=== PATIENT | male | born 1975 | race Caucasian/White ===

== ENCOUNTER 2016-07-13 18:33 | Inpatient (IN) | payer MEDICAID ==
[~2016-07-13] VITALS: Ht 165.1 cm; Wt 69.2 kg
[2016-07-13] MEDS ORDERED: RENAL PO (18:41)
[2016-07-13] MEDS ORDERED: HTN PO (18:41)
[2016-07-13 19:37] LABS: CALCIUM, TOTAL 7.5 mg/dL (8.8-10.5); CREATININE 14.74 mg/dL (0.60-1.30)
[2016-07-13 19:45] LABS: BASOPHILS # (AUTO) 0.01 K/uL (0.00-0.20); BASOPHILS % (AUTO) 0.1 % (0.0-2.0); EOSINOPHILS # (AUTO) 0.13 K/uL (0.00-0.70); EOSINOPHILS % (AUTO) 1.22 % (1.0-6.0); HEMATOCRIT 29.4 % (41-53); HEMOGLOBIN 9.8 g/dL (13.5-17.5); LYMPHOCYTES # (AUTO) 0.7 K/uL (1.0-4.8); LYMPHOCYTES % (AUTO) 6.7 % (22.0-44.0); MEAN CORPUSCULAR HEMOGLOBIN 33.2 pg (26.0-34.0); MEAN CORPUSCULAR HGB CONC 33.2 G/dL (31.0-37.0); MEAN CORPUSCULAR VOLUME 100 fL (80-100); MONOCYTES # (AUTO) 0.9 K/uL (0.1-1.0); MONOCYTES % (AUTO) 8.2 % (2.0-9.0); NEUTROPHILS # (AUTO) 9.3 K/uL (1.8-7.7); NEUTROPHILS % (AUTO) 83.8 % (40.0-70.0); PLATELET COUNT (AUTO) 145 K/uL (150-450); RED BLOOD CELL COUNT(AUTO) 2.94 MIL/uL (4.50-5.90); RED CELL DISTRIBUTION WIDTH 14.3 % (11.5-14.5); WHITE BLOOD COUNT (AUTO) 11.1 K/uL (4.5-11.0)
[2016-07-13] MEDS ORDERED: ALBUTEROL SULFATE 5 MG/ML 20 ML NEB SOLN [BULK] NEB ONE (21:45)
[2016-07-13] MEDS ORDERED: IPRATROPIUM BROMIDE 0.5 MG/2.5 ML NEB SOLUTION NEB ONE (21:45)
[2016-07-13] MEDS ORDERED: INSULIN REGULAR, HUMAN 100 UNITS/ML IVP ONE (21:45)
[2016-07-13] MEDS ORDERED: CefTRIAXone 1 GM/DEXTROSE 50 ML IV ONE (21:45)
[2016-07-13] MEDS ORDERED: DEXTROSE 50%-WATER 25 GM/50 ML SYRINGE IVP ONE (21:45)
[2016-07-13] MEDS ORDERED: SODIUM POLYSTYRENE SULFONATE 15 GM/60 ML SUSPENSION BOTTLE PO ONE ×2 (21:45→23:15)
[2016-07-13 21:51] LABS: GLUCOSE,POINT OF CARE 122 MG/DL (70-110)
[2016-07-13] MEDS ORDERED: NITROGLYCERIN 2% (1 GM=INCH) PACKET TP ONE (22:15)
[2016-07-13] MEDS ORDERED: ASPIRIN 325 MG TABLET PO ONE (22:15)
[2016-07-13] MEDS ORDERED: FUROSEMIDE 40 MG/4 ML VIAL IVP ONE (22:15)
[2016-07-13 22:32] LABS: INFLUENZA TYPE B NEGATIVE FOR TYPE B (NEGATIVE)
[2016-07-13 23:05] LABS: ALBUMIN 2.8 g/dL (3.4-5.0); BILIRUBIN,DIRECT 0.1 mg/dL (0.00-0.20); BILIRUBIN,TOTAL 0.3 mg/dL (0.1-1.0); TOTAL PROTEIN, SERUM 6.5 g/dL (6.4-8.2)
[2016-07-13 23:08] LABS: LACTIC ACID 0.6 mmol/L (0.4-2.0)
[2016-07-13] MEDS ORDERED: ACETAMINOPHEN 325 MG TABLET PO PRN (23:30)
[2016-07-13] MEDS ORDERED: ONDANSETRON HCL 4 MG/2 ML VIAL IVP PRN (23:30)
[2016-07-13] MEDS ORDERED: 0.9% SODIUM CHLORIDE 10 ML SYRINGE IVP PRN (23:30)
[2016-07-13] MEDS ORDERED: 0.9% SODIUM CHLORIDE 5 ML NEB SOLUTION NEB ONE (23:51)
[2016-07-14 01:17] LABS: APPEARANCE,URINE CLEAR (CLEAR); GLUCOSE, URINE (UA) NEGATIVE (NEGATIVE); KETONES,URINE NEGATIVE (NEGATIVE); LEUKOCYTE ESTERASE ,URINE NEGATIVE (NEGATIVE); OCCULT BLOOD,URINE LARGE (NEGATIVE); PH,URINE 6.5 (5.0-8.0); PROTEIN,URINE SEE CONFIRM (NEGATIVE)
[2016-07-14 01:18] LABS: ADD UA MICROSCOPIC YES
[2016-07-14 01:27] LABS: RBC,URINE 51-100 /HPF (0-2); SULFOSALICYLIC ACID,URINE 2+ (Negative)
[2016-07-14] MEDS ORDERED: 0.9% SODIUM CHLORIDE 10 ML SYRINGE IVP PRN (03:30)
[2016-07-14] MEDS ORDERED: ONDANSETRON HCL 4 MG/2 ML VIAL IVP PRN (03:30)
[2016-07-14] MEDS ORDERED: MAGNESIUM HYDROXIDE SUSPENSION 30 ML UDCUP PO PRN (03:30)
[2016-07-14] MEDS ORDERED: ACETAMINOPHEN 325 MG TABLET PO PRN (03:30)
[2016-07-14] MEDS ORDERED: HydrALAZINE HCL 20 MG/ML VIAL IVP PRN (03:30)
[2016-07-14] MEDS ORDERED: OxyCODONE HCL/ACETAMINOPHEN 5-325 MG TABLET PO PRN ×2 (03:30)
[2016-07-14 05:36] LABS: CALCIUM, TOTAL 7.1 mg/dL (8.8-10.5); CREATININE 15.18 mg/dL (0.60-1.30); POTASSIUM 5.5 mmol/L (3.5-5.1)
[2016-07-14] MEDS ORDERED: SODIUM CHLORIDE 0.9% 2,000 ML IV ONE (09:15)
[2016-07-14 09:36] VITALS: BP 158/88
[2016-07-14 11:59] VITALS: BP 136/88
[2016-07-14 12:24] LABS: BASOPHILS % (AUTO) 0.2 % (0.0-2.0); EOSINOPHILS % (AUTO) 0.3 % (1.0-6.0); HEMATOCRIT 30.6 % (41-53); LYMPHOCYTES # (AUTO) 0.5 K/uL (1.0-4.8); MEAN CORPUSCULAR HEMOGLOBIN 32.4 pg (26.0-34.0); MEAN CORPUSCULAR HGB CONC 32.5 G/dL (31.0-37.0); MEAN CORPUSCULAR VOLUME 100 fL (80-100); MONOCYTES # (AUTO) 0.7 K/uL (0.1-1.0); NEUTROPHILS # (AUTO) 10.6 K/uL (1.8-7.7); PLATELET COUNT (AUTO) 189 K/uL (150-450); RED BLOOD CELL COUNT(AUTO) 3.07 MIL/uL (4.50-5.90); RED CELL DISTRIBUTION WIDTH 13.9 % (11.5-14.5); WHITE BLOOD COUNT (AUTO) 11.8 K/uL (4.5-11.0)
[2016-07-14 12:27] LABS: NEUTROPHILS % (AUTO) 89.5 % (40.0-70.0)
[2016-07-14 12:36] LABS: ALBUMIN 2.9 g/dL (3.4-5.0); BILIRUBIN,TOTAL 0.3 mg/dL (0.1-1.0); CREATININE 6.58 mg/dL (0.60-1.30); POTASSIUM 3.4 mmol/L (3.5-5.1); TOTAL PROTEIN, SERUM 7.1 g/dL (6.4-8.2)
[2016-07-14] MEDS: DOCUSATE SODIUM 100 MG CAPSULE PO SCH ×3 (13:12→21:26)
[2016-07-14] MEDS: PANTOPRAZOLE SODIUM 40 MG/VIAL IVP SCH (13:12)
[2016-07-14] MEDS ORDERED: LISI2.5T2 PO (15:05)
[2016-07-14 15:30] VITALS: BP 159/80
[2016-07-14] MEDS ORDERED: DOXERCALCIFEROL 4 MCG/2 ML AMP IVP SCH (15:30)
[2016-07-14] MEDS ORDERED: DOXERCALCIFEROL 4 MCG/2 ML AMP IVP PRN (15:45)
[2016-07-14] MEDS ORDERED: POTASSIUM CHLORIDE 20 MEQ ER TABLET PO ONE (17:15)
[2016-07-14] MEDS: EPOETIN ALFA 10,000 UNITS/ML 2 ML VIAL SQ SCH (17:31)
[2016-07-14] MEDS: VITAMIN B COMP/VIT C/FOLIC ACID CAPSULE PO SCH (17:32)
[2016-07-14] MEDS: SEVELAMER CARBONATE 800 MG TABLET PO SCH (18:20)
[2016-07-14 19:25] VITALS: BP 175/88
[2016-07-14] MEDS: TERAZOSIN HCL 1 MG CAPSULE PO SCH (21:26)
[2016-07-15] VITALS (7 sets, daily range): BP systolic 45–161; BP diastolic 74–145
[2016-07-15 07:12] LABS: BASOPHILS # (AUTO) 0.01 K/uL (0.00-0.20); BASOPHILS % (AUTO) 0.1 % (0.0-2.0); EOSINOPHILS # (AUTO) 0.24 K/uL (0.00-0.70); EOSINOPHILS % (AUTO) 3.77 % (1.0-6.0); HEMATOCRIT 24.4 % (41-53); HEMOGLOBIN 8.1 g/dL (13.5-17.5); LYMPHOCYTES # (AUTO) 1.1 K/uL (1.0-4.8); LYMPHOCYTES % (AUTO) 16.9 % (22.0-44.0); MEAN CORPUSCULAR HGB CONC 33.3 G/dL (31.0-37.0); MEAN CORPUSCULAR VOLUME 99 fL (80-100); MONOCYTES # (AUTO) 0.8 K/uL (0.1-1.0); MONOCYTES % (AUTO) 11.8 % (2.0-9.0); NEUTROPHILS # (AUTO) 4.4 K/uL (1.8-7.7); NEUTROPHILS % (AUTO) 67.4 % (40.0-70.0); PLATELET COUNT (AUTO) 136 K/uL (150-450); RED BLOOD CELL COUNT(AUTO) 2.46 MIL/uL (4.50-5.90); RED CELL DISTRIBUTION WIDTH 14.5 % (11.5-14.5); WHITE BLOOD COUNT (AUTO) 6.5 K/uL (4.5-11.0)
[2016-07-15 08:02] LABS: CALCIUM, TOTAL 6.5 mg/dL (8.8-10.5); CREATININE 11.59 mg/dL (0.60-1.30); POTASSIUM 4.8 mmol/L (3.5-5.1)
[2016-07-15] MEDS: PANTOPRAZOLE SODIUM 40 MG/VIAL IVP SCH (08:14)
[2016-07-15] MEDS: DOCUSATE SODIUM 100 MG CAPSULE PO SCH ×2 (08:14→20:45)
[2016-07-15] MEDS: SEVELAMER CARBONATE 800 MG TABLET PO SCH ×3 (08:14→18:20)
[2016-07-15] MEDS: LISINOPRIL 5 MG TABLET PO SCH (08:15)
[2016-07-15] MEDS: VITAMIN B COMP/VIT C/FOLIC ACID CAPSULE PO SCH (08:15)
[2016-07-15] MEDS ORDERED: -HEMODIALYSIS NOTE- MISC SCH (09:00)
[2016-07-15] MEDS: TERAZOSIN HCL 1 MG CAPSULE PO SCH (20:46)
[2016-07-16 00:02] VITALS: BP 156/79
[2016-07-16 05:20] VITALS: BP 139/77
[2016-07-16 07:30] LABS: BASOPHILS # (AUTO) 0.05 K/uL (0.00-0.20); BASOPHILS % (AUTO) 0.7 % (0.0-2.0); EOSINOPHILS # (AUTO) 0.42 K/uL (0.00-0.70); EOSINOPHILS % (AUTO) 6.75 % (1.0-6.0); HEMATOCRIT 24.3 % (41-53); HEMOGLOBIN 8.1 g/dL (13.5-17.5); LYMPHOCYTES # (AUTO) 0.9 K/uL (1.0-4.8); LYMPHOCYTES % (AUTO) 15.1 % (22.0-44.0); MEAN CORPUSCULAR HGB CONC 33.3 G/dL (31.0-37.0); MEAN CORPUSCULAR VOLUME 99 fL (80-100); MONOCYTES # (AUTO) 0.6 K/uL (0.1-1.0); NEUTROPHILS # (AUTO) 4.2 K/uL (1.8-7.7); NEUTROPHILS % (AUTO) 67.4 % (40.0-70.0); PLATELET COUNT (AUTO) 138 K/uL (150-450); RED BLOOD CELL COUNT(AUTO) 2.46 MIL/uL (4.50-5.90); RED CELL DISTRIBUTION WIDTH 14.7 % (11.5-14.5); WHITE BLOOD COUNT (AUTO) 6.2 K/uL (4.5-11.0)
[2016-07-16 07:45] VITALS: BP 152/88
[2016-07-16 07:57] LABS: CALCIUM, TOTAL 7.1 mg/dL (8.8-10.5); CREATININE 13.16 mg/dL (0.60-1.30); POTASSIUM 5.7 mmol/L (3.5-5.1)
[2016-07-16] MEDS ORDERED: SODIUM CHLORIDE 0.9% 3,000 ML IV ONE (08:31)
[2016-07-16] MEDS: EPOETIN ALFA 10,000 UNITS/ML 2 ML VIAL SQ SCH (09:00)
[2016-07-16] MEDS: PANTOPRAZOLE SODIUM 40 MG/VIAL IVP SCH (11:52)
[2016-07-16] MEDS: DOCUSATE SODIUM 100 MG CAPSULE PO SCH (12:22)
[2016-07-16] MEDS: VITAMIN B COMP/VIT C/FOLIC ACID CAPSULE PO SCH (12:22)
[2016-07-16] MEDS: LISINOPRIL 5 MG TABLET PO SCH (12:22)
[2016-07-16] MEDS ORDERED: FOLI1CAP2 PO (15:44)
[2016-07-16] MEDS ORDERED: LISINOPRIL PO (15:44)
[2016-07-16] MEDS ORDERED: SEVEC800 PO (15:44)
[2016-07-16] MEDS ORDERED: TERAZOSIN PO (15:44)
[2016-07-16 15:58] VITALS: BP 160/94
== END 2016-07-16 16:45 | disposition home or self-care (01) | DRG 194 ==
LOC: EMS 18:38 → 5N 07-14 00:05 → 6N 07-15 23:35
PROVIDERS: ADMIT Internal Medicine; ATTEND Internal Medicine
PROC: 5A1D00Z (ICD-10-PCS; principal; 2016-07-14)
DX: I13.2 Hypertensive heart and chronic kidney disease with heart failure and with stage 5 chronic kidney disease, or end stage renal disease (principal); I50.33 Acute on chronic diastolic (congestive) heart failure; E43 Unspecified severe protein-calorie malnutrition; N18.6 End stage renal disease; D63.1 Anemia in chronic kidney disease; E83.39 Other disorders of phosphorus metabolism; E87.6 Hypokalemia; N40.0 Benign prostatic hyperplasia without lower urinary tract symptoms; N26.9 Renal sclerosis, unspecified; Z99.2 Dependence on renal dialysis; Z98.890 Other specified postprocedural states; Z88.5 Allergy status to narcotic agent; Z68.25 Body mass index [BMI] 25.0-25.9, adult; Z79.899 Other long term (current) drug therapy; Z82.49 Family history of ischemic heart disease and other diseases of the circulatory system
CPT/HCPCS: 76770; 82962; 83605; 86706; 87040; 87081; 87086; 87340; 87804; 90935; 93005; 93306; 94640; 96365; 96375; 99291; C9113; J0696; J0885; J1815; J1940; J7030

== ENCOUNTER 2016-07-23 19:59 | Inpatient (IN) | payer MEDICAID ==
[~2016-07-23] VITALS: Ht 160 cm; Wt 74.4 kg
[~2016-07-23 19:59] MED LIST: FOLI1CAP2 PO; LISINOPRIL PO; RENAL PO; SEVEC800 PO; TERAZOSIN PO
[2016-07-23 20:31] LABS: BASOPHILS % (AUTO) 0.3 % (0.0-2.0); EOSINOPHILS % (AUTO) 1.4 % (1.0-6.0); HEMATOCRIT 28.5 % (41-53); HEMOGLOBIN 9.3 g/dL (13.5-17.5); LYMPHOCYTES # (AUTO) 0.7 K/uL (1.0-4.8); LYMPHOCYTES % (AUTO) 4.7 % (22.0-44.0); MEAN CORPUSCULAR HEMOGLOBIN 32.3 pg (26.0-34.0); MEAN CORPUSCULAR HGB CONC 32.6 G/dL (31.0-37.0); MEAN CORPUSCULAR VOLUME 99 fL (80-100); MONOCYTES # (AUTO) 1.1 K/uL (0.1-1.0); MONOCYTES % (AUTO) 6.8 % (2.0-9.0); NEUTROPHILS # (AUTO) 13.7 K/uL (1.8-7.7); PLATELET COUNT (AUTO) 189 K/uL (150-450); RED BLOOD CELL COUNT(AUTO) 2.88 MIL/uL (4.50-5.90); RED CELL DISTRIBUTION WIDTH 13.4 % (11.5-14.5); WHITE BLOOD COUNT (AUTO) 15.7 K/uL (4.5-11.0)
[2016-07-23 20:35] LABS: NEUTROPHILS % (AUTO) 86.8 % (40.0-70.0)
[2016-07-23 20:43] LABS: INR 1.1 (0.9-1.1); PROTHROMBIN TIME 11.9 SEC (9.4-11.6)
[2016-07-23 20:54] LABS: B-TYPE NATRIURETIC PEPTIDE 792 pg/mL (0-100)
[2016-07-23 21:00] LABS: ALANINE AMINOTRANSFERASE 89 U/L (12-78); ALBUMIN 2.9 g/dL (3.4-5.0); ANION GAP 15 mmol/L (8-16); ASPARTATE AMINOTRANSFERASE 31 U/L (15-37); BILIRUBIN,TOTAL 0.3 mg/dL (0.1-1.0); CALCIUM, TOTAL 6.6 mg/dL (8.8-10.5); CARBON DIOXIDE 22 mmol/L (22-29); CHLORIDE 102 mmol/L (98-107); CREATINE KINASE MB 3.2 ng/mL (0-5); CREATINE KINASE, TOTAL 289 U/L (39-308); CREATININE 12.69 mg/dL (0.60-1.30); GLOMERULAR FILTR. RATE CALC 4 mL/min (>60); SODIUM SERUM 139 mmol/L (136-145); TOTAL PROTEIN, SERUM 6.4 g/dL (6.4-8.2)
[2016-07-23 21:04] LABS: POTASSIUM 6.5 mmol/L (3.5-5.1)
[2016-07-23 21:05] LABS: UREA NITROGEN, BLOOD 123 mg/dL (7-18)
[2016-07-23] MEDS ORDERED: CALCIUM GLUCONATE 100 MG/ML 10 ML IVP ONE (21:15)
[2016-07-23] MEDS ORDERED: INSULIN REGULAR, HUMAN 100 UNITS/ML IVP ONE (21:15)
[2016-07-23] MEDS ORDERED: DEXTROSE 50%-WATER 25 GM/50 ML SYRINGE IVP ONE (21:15)
[2016-07-23] MEDS ORDERED: FUROSEMIDE 20 MG/2 ML VIAL IVP ONE (21:45)
[2016-07-23] MEDS ORDERED: SODIUM POLYSTYRENE SULFONATE 15 GM/60 ML SUSPENSION BOTTLE PO ONE (21:45)
[2016-07-23] MEDS ORDERED: FUROSEMIDE 40 MG/4 ML VIAL IVP ONE (21:45)
[2016-07-23] MEDS ORDERED: ZOLPIDEM TARTRATE 5 MG TABLET PO PRN (23:15)
[2016-07-23] MEDS ORDERED: ONDANSETRON HCL 4 MG/2 ML VIAL IVP PRN (23:15)
[2016-07-23] MEDS ORDERED: MAGNESIUM HYDROXIDE SUSPENSION 30 ML UDCUP PO PRN (23:15)
[2016-07-23] MEDS ORDERED: ALBUTEROL SULFATE 2.5 MG/0.5 ML NEB SOLUTION NEB PRN (23:15)
[2016-07-23] MEDS ORDERED: CloNIDine HCL 0.1 MG TABLET PO PRN (23:15)
[2016-07-23] MEDS ORDERED: ACETAMINOPHEN 325 MG TABLET PO PRN (23:15)
[2016-07-23] MEDS ORDERED: BISACODYL 10 MG RECTAL RECTAL SUPPOSITORY PR PRN (23:15)
[2016-07-23] MEDS ORDERED: IPRATROPIUM BROMIDE 0.5 MG/2.5 ML NEB SOLUTION NEB PRN (23:15)
[2016-07-24] MEDS ORDERED: TERA1 PO (06:24)
[2016-07-24] MEDS ORDERED: LISI-660 PO (06:24)
[2016-07-24 06:30] LABS: BASOPHILS % (AUTO) 0.3 % (0.0-2.0); EOSINOPHILS % (AUTO) 1.8 % (1.0-6.0); HEMATOCRIT 25.4 % (41-53); HEMOGLOBIN 8.3 g/dL (13.5-17.5); LYMPHOCYTES % (AUTO) 9.7 % (22.0-44.0); MEAN CORPUSCULAR HEMOGLOBIN 32.5 pg (26.0-34.0); MEAN CORPUSCULAR HGB CONC 32.5 G/dL (31.0-37.0); MEAN CORPUSCULAR VOLUME 100 fL (80-100); MONOCYTES # (AUTO) 0.9 K/uL (0.1-1.0); MONOCYTES % (AUTO) 8.7 % (2.0-9.0); NEUTROPHILS # (AUTO) 8.2 K/uL (1.8-7.7); NEUTROPHILS % (AUTO) 79.5 % (40.0-70.0); PLATELET COUNT (AUTO) 167 K/uL (150-450); RED BLOOD CELL COUNT(AUTO) 2.54 MIL/uL (4.50-5.90); RED CELL DISTRIBUTION WIDTH 13.8 % (11.5-14.5); WHITE BLOOD COUNT (AUTO) 10.4 K/uL (4.5-11.0)
[2016-07-24 07:24] LABS: ALBUMIN 2.5 g/dL (3.4-5.0); BILIRUBIN,TOTAL 0.3 mg/dL (0.1-1.0); CALCIUM, TOTAL 6.7 mg/dL (8.8-10.5); CHOL/HDL RATIO 2.9 (4.2-7.3); CREATININE 13.42 mg/dL (0.60-1.30); MAGNESIUM 2.2 mg/dL (1.80-2.40); PHOSPHORUS 6.8 mg/dL (2.5-4.9); POTASSIUM 5.2 mmol/L (3.5-5.1); THYROID STIMULATING HORMONE 0.68 uIU/mL (0.36-3.74); TOTAL PROTEIN, SERUM 5.6 g/dL (6.4-8.2)
[2016-07-24 07:58] LABS: CALCIUM, TOTAL 6.9 mg/dL (8.8-10.5); CREATININE 13.66 mg/dL (0.60-1.30); POTASSIUM 5.6 mmol/L (3.5-5.1)
[2016-07-24] MEDS: VITAMIN B COMP/VIT C/FOLIC ACID CAPSULE PO SCH (09:17)
[2016-07-24] MEDS: PANTOPRAZOLE SODIUM 40 MG DR TABLET PO SCH (09:17)
[2016-07-24] MEDS: SEVELAMER CARBONATE 800 MG TABLET PO SCH ×3 (09:17→17:30)
[2016-07-24] MEDS: HEPARIN SODIUM,PORCINE 5,000 UNITS/ML VIAL SQ SCH ×2 (09:17→21:35)
[2016-07-24] MEDS ORDERED: DOXERCALCIFEROL 4 MCG/2 ML AMP IVP PRN (10:45)
[2016-07-24] MEDS: CefTRIAXone 1 GM/DEXTROSE 50 ML IV SCH (11:51)
[2016-07-24] MEDS: EPOETIN ALFA 10,000 UNITS/ML 2 ML VIAL SQ SCH (12:08)
[2016-07-24 12:12] VITALS: BP 183/108
[2016-07-24 13:38] LABS: RBC MORPHOLOGY COMMENT ABNORMAL RBC MORPH
[2016-07-24] MEDS ORDERED: LORazepam 2 MG/ML VIAL IVP ONE (14:30)
[2016-07-24] MEDS: HydrALAZINE HCL 20 MG/ML VIAL IVP PRN (14:35)
[2016-07-24 14:39] VITALS: BP 173/101
[2016-07-24 15:31] VITALS: BP 135/87
[2016-07-24 19:16] VITALS: BP 162/91
[2016-07-24] MEDS ORDERED: SODIUM CHLORIDE 0.9% 250 ML IV ONE (20:17)
[2016-07-24] MEDS: AZITHROMYCIN 500 MG/NS 250 ML IV SCH (20:36)
[2016-07-24] MEDS: OxyCODONE HCL/ACETAMINOPHEN 5-325 MG TABLET PO PRN (21:35)
[2016-07-24] MEDS: TERAZOSIN HCL 2 MG CAPSULE PO SCH (21:35)
[2016-07-24 23:14] VITALS: BP 110/56
[2016-07-25] VITALS (7 sets, daily range): BP systolic 110–147; BP diastolic 56–81
[2016-07-25] MEDS: OxyCODONE HCL/ACETAMINOPHEN 5-325 MG TABLET PO PRN (05:30)
[2016-07-25 06:49] LABS: BASOPHILS # (AUTO) 0.01 K/uL (0.00-0.20); BASOPHILS % (AUTO) 0.2 % (0.0-2.0); EOSINOPHILS # (AUTO) 0.06 K/uL (0.00-0.70); EOSINOPHILS % (AUTO) 0.79 % (1.0-6.0); HEMATOCRIT 23.4 % (41-53); HEMOGLOBIN 7.7 g/dL (13.5-17.5); LYMPHOCYTES # (AUTO) 0.9 K/uL (1.0-4.8); LYMPHOCYTES % (AUTO) 12.2 % (22.0-44.0); MEAN CORPUSCULAR HEMOGLOBIN 32.7 pg (26.0-34.0); MEAN CORPUSCULAR HGB CONC 32.8 G/dL (31.0-37.0); MEAN CORPUSCULAR VOLUME 100 fL (80-100); MONOCYTES # (AUTO) 0.7 K/uL (0.1-1.0); MONOCYTES % (AUTO) 9.5 % (2.0-9.0); NEUTROPHILS # (AUTO) 5.6 K/uL (1.8-7.7); NEUTROPHILS % (AUTO) 77.4 % (40.0-70.0); PLATELET COUNT (AUTO) 162 K/uL (150-450); RED BLOOD CELL COUNT(AUTO) 2.35 MIL/uL (4.50-5.90); RED CELL DISTRIBUTION WIDTH 14.6 % (11.5-14.5); WHITE BLOOD COUNT (AUTO) 7.2 K/uL (4.5-11.0)
[2016-07-25 07:12] LABS: CALCIUM, TOTAL 7.3 mg/dL (8.8-10.5); CREATININE 8.09 mg/dL (0.60-1.30); PHOSPHORUS 6.8 mg/dL (2.5-4.9); POTASSIUM 4.6 mmol/L (3.5-5.1)
[2016-07-25] MEDS: PANTOPRAZOLE SODIUM 40 MG DR TABLET PO SCH (08:40)
[2016-07-25] MEDS: VITAMIN B COMP/VIT C/FOLIC ACID CAPSULE PO SCH (08:40)
[2016-07-25] MEDS: SEVELAMER CARBONATE 800 MG TABLET PO SCH ×3 (08:40→18:33)
[2016-07-25] MEDS: EPOETIN ALFA 10,000 UNITS/ML 2 ML VIAL SQ SCH (08:53)
[2016-07-25] MEDS ORDERED: -HEMODIALYSIS NOTE- MISC SCH (09:00)
[2016-07-25] MEDS ORDERED: BUMETANIDE 1 MG TABLET PO SCH (09:00)
[2016-07-25] MEDS: HEPARIN SODIUM,PORCINE 5,000 UNITS/ML VIAL SQ SCH ×2 (09:00→20:25)
[2016-07-25] MEDS: CefTRIAXone 1 GM/DEXTROSE 50 ML IV SCH (11:39)
[2016-07-25] MEDS: DOCUSATE SODIUM 100 MG CAPSULE PO SCH ×2 (11:39→20:25)
[2016-07-25] MEDS ORDERED: SODIUM CHLORIDE 0.9% 250 ML IV ONE (11:39)
[2016-07-25] MEDS: GuaiFENesin SR 600 MG ER TABLET PO SCH ×2 (11:39→20:25)
[2016-07-25] MEDS: AZITHROMYCIN 500 MG/NS 250 ML IV SCH (20:25)
[2016-07-25] MEDS: TERAZOSIN HCL 2 MG CAPSULE PO SCH (20:25)
[2016-07-26] MEDS ORDERED: SODIUM CHLORIDE 0.9% 1,000 ML IV ONE ×2 (04:35→04:36)
[2016-07-26 05:02] VITALS: BP 148/82
[2016-07-26 07:10] VITALS: BP 174/84
[2016-07-26 07:21] LABS: GLUCOSE,POINT OF CARE 161 MG/DL (70-110)
[2016-07-26 07:33] LABS: BASOPHILS # (AUTO) 0.02 K/uL (0.00-0.20); BASOPHILS % (AUTO) 0.8 % (0.0-2.0); EOSINOPHILS # (AUTO) 0.25 K/uL (0.00-0.70); EOSINOPHILS % (AUTO) 8.22 % (1.0-6.0); HEMOGLOBIN 7.2 g/dL (13.5-17.5); LYMPHOCYTES # (AUTO) 1.1 K/uL (1.0-4.8); LYMPHOCYTES % (AUTO) 34.6 % (22.0-44.0); MEAN CORPUSCULAR HEMOGLOBIN 32.6 pg (26.0-34.0); MEAN CORPUSCULAR HGB CONC 32.8 G/dL (31.0-37.0); MEAN CORPUSCULAR VOLUME 99 fL (80-100); MONOCYTES # (AUTO) 0.2 K/uL (0.1-1.0); MONOCYTES % (AUTO) 6.5 % (2.0-9.0); NEUTROPHILS # (AUTO) 1.5 K/uL (1.8-7.7); NEUTROPHILS % (AUTO) 49.8 % (40.0-70.0); PLATELET COUNT (AUTO) 120 K/uL (150-450); RED BLOOD CELL COUNT(AUTO) 2.22 MIL/uL (4.50-5.90); RED CELL DISTRIBUTION WIDTH 13.9 % (11.5-14.5)
[2016-07-26 07:49] LABS: CALCIUM, TOTAL 7.3 mg/dL (8.8-10.5); CREATININE 8.74 mg/dL (0.60-1.30); PHOSPHORUS 5.9 mg/dL (2.5-4.9); POTASSIUM 4.7 mmol/L (3.5-5.1)
[2016-07-26] MEDS: HEPARIN SODIUM,PORCINE 5,000 UNITS/ML VIAL SQ SCH (08:39)
[2016-07-26] MEDS: SEVELAMER CARBONATE 800 MG TABLET PO SCH ×2 (08:39→12:30)
[2016-07-26] MEDS: DOCUSATE SODIUM 100 MG CAPSULE PO SCH (08:39)
[2016-07-26] MEDS: GuaiFENesin SR 600 MG ER TABLET PO SCH (08:39)
[2016-07-26] MEDS: VITAMIN B COMP/VIT C/FOLIC ACID CAPSULE PO SCH (08:39)
[2016-07-26] MEDS: PANTOPRAZOLE SODIUM 40 MG DR TABLET PO SCH (08:39)
[2016-07-26] MEDS: HydrALAZINE HCL 20 MG/ML VIAL IVP PRN (09:24)
[2016-07-26 11:57] VITALS: BP 138/72
[2016-07-26] MEDS: CefTRIAXone 1 GM/DEXTROSE 50 ML IV SCH (12:30)
[2016-07-26 15:26] VITALS: BP 145/85
[2016-07-26] MEDS ORDERED: AZIT250T6 PO (16:23)
[2016-07-26] MEDS ORDERED: BUME1TAB30 PO (16:25)
[2016-07-26] MEDS ORDERED: GUAI120017 PO (16:30)
[2016-07-26] MEDS ORDERED: PANT40TA25 PO (16:31)
[2016-07-26] MEDS ORDERED: AMLO-512 PO (16:33)
[2016-07-27] MEDS ORDERED: BUMETANIDE 1 MG TABLET PO SCH (09:00)
== END 2016-07-26 17:20 | disposition home or self-care (01) | DRG 720 ==
LOC: EMS 20:01 → AHU 07-24 08:13 → 5N 07-24 18:41
PROVIDERS: ADMIT Internal Medicine; ATTEND Internal Medicine
PROC: 5A1D60Z (ICD-10-PCS; principal; 2016-07-24)
DX: A41.9 Sepsis, unspecified organism (principal); I13.2 Hypertensive heart and chronic kidney disease with heart failure and with stage 5 chronic kidney disease, or end stage renal disease; E46 Unspecified protein-calorie malnutrition; J18.9 Pneumonia, unspecified organism; N18.6 End stage renal disease; I50.9 Heart failure, unspecified; E87.70 Fluid overload, unspecified; N26.9 Renal sclerosis, unspecified; N40.1 Benign prostatic hyperplasia with lower urinary tract symptoms; D63.1 Anemia in chronic kidney disease; E83.39 Other disorders of phosphorus metabolism; E87.5 Hyperkalemia; Z91.14 Patient's other noncompliance with medication regimen; Z79.899 Other long term (current) drug therapy; Z82.49 Family history of ischemic heart disease and other diseases of the circulatory system; Z98.890 Other specified postprocedural states; Z88.5 Allergy status to narcotic agent; Z68.29 Body mass index [BMI] 29.0-29.9, adult; Z99.2 Dependence on renal dialysis
CPT/HCPCS: 82306; 82962; 83735; 84100; 84443; 87040; 87081; 87340; 90935; 93005; 96374; 96375; 99285; J0360; J0456; J0610; J0696; J0885; J1644; J1815; J1940; J2060; J7030; J7050